=== PATIENT | female | born 1935 | race Asian ===

== ENCOUNTER → 2023-02-05 | Outpatient (CLI) | payer MEDICARE, OTHER ==
[~2023-02-05] MED LIST: ALEN70 PO; ASPI81EC PO; Antivert25 MG PO; FISH1000 PO; LORA1 PO; LOSARTAN POTASS25 MG PO; MECL25 PO; METO50 PO; MULVITMINF PO; SIMV40 PO
== END | disposition home or self-care (01) ==
LOC: LAB SHORT 08:28 → PLD 08:28
DX: D22.9 Melanocytic nevi, unspecified (principal); L82.1 Other seborrheic keratosis
CPT/HCPCS: 88305

== ENCOUNTER 2024-05-01 09:44 | Emergency (ER) | payer OTHER, MEDICARE ==
[~2024-05-01] VITALS: Ht 157.5 cm; Wt 59.0 kg
[2024-05-01] MEDS ORDERED: Acetaminophen 325 MG TABLET PO ONE (10:10)
[2024-05-01] MEDS ORDERED: Cyclobenzaprine HCl 10 MG Tab PO ONE (10:10)
[2024-05-01] MEDS ORDERED: TROLAMINE SALICYLATE 10% CREAM 141 GM TUBE TOP ONE (10:10)
[2024-05-01] MEDS ORDERED: ALCIS59.15 ML TOP (11:22)
[2024-05-01] MEDS ORDERED: CYCLOBENZAPRINE5 MG PO (11:22)
[2024-05-01] MEDS ORDERED: Tylenol325 MG PO (11:22)
[2024-05-01 12:00] VITALS: BP 150/99
== END 2024-05-01 12:02 | disposition home or self-care (01) ==
LOC: ER 09:44
DX: S39.012A Strain of muscle, fascia and tendon of lower back, initial encounter (principal); I10 Essential (primary) hypertension; W01.0XXA Fall on same level from slipping, tripping and stumbling without subsequent striking against object, initial encounter; Z87.891 Personal history of nicotine dependence; Z79.82 Long term (current) use of aspirin; Z79.899 Other long term (current) drug therapy; Z88.0 Allergy status to penicillin; Z88.1 Allergy status to other antibiotic agents
CPT/HCPCS: 72100; 99283-25; A9270